=== PATIENT | female | born 1965 | race Caucasian/White ===

== ENCOUNTER → 2016-08-12 | Outpatient (CLI) | payer BC ==
[~2016-08-12] MED LIST: B-COTAB18 PO; CLR10 PO; ESTR0.3T PO; FLUT0.0529 NAE; FLVHFA110 INH; META-38 PO; MISCCAP80 PO; SUMA25TA12 PO; TOPI100T20 PO
--- NOTE | 2016-08-13 12:40 | MAMMOGRAPHY REPORT ---
BILATERAL DIGITAL SCREENING MAMMOGRAM TOMOSYNTHESIS WITH CAD: 08/12/2016 CLINICAL HISTORY: Routine screening. Patient has no complaints. TECHNIQUE: Breast tomosynthesis in addition to standard 2D mammography was performed. Current study was also evaluated with a Computer Aided Detection (CAD) system. COMPARISON: Comparison is made to exams dated: 06/30/2014 mammogram, 07/20/2013 ultrasound, 06/29/2013 mammogram, 06/23/2012 mammogram, 06/18/2011 mammogram, and 06/12/2010 mammogram - [facility] enter. BREAST COMPOSITION: The tissue of both breasts is heterogeneously dense, which may obscure small ma sses. FINDINGS: There is a stable grouping of punctate microcalcifications in the upper outer quadrant of the left breast. No suspicious mass, architectural distortion or cluster of new, suspicious microca lcifications is seen. IMPRESSION: ACR BI-RADS CATEGORY 1: NEGATIVE There is no mammographic evidence of malignancy. A 1 year screening mammogram is recommended. The p atient will receive written notification of the results. Approximately 10% of breast cancers are not detected with mammography. A negative mammographic repor t should not delay biopsy if a clinically suggestive mass is present. Niurka Kathleen M.D. ay/:08/12/2016 17:51:57 Primer Charger: Nati Edmond, [facility] letter sent: Normal 1/2 BI-RADS Code: ACR BI-RADS Category 1: Negative
== END | disposition home or self-care (01) ==
LOC: C.MAMM 07:07
PROVIDERS: ATTEND Obstetrics & Gynecology
DX: Z12.31 Encounter for screening mammogram for malignant neoplasm of breast (principal)

== ENCOUNTER → 2016-08-22 | Outpatient (CLI) | payer BC | END | disposition home or self-care (01) | LOC: C.LABSPEC 12:02 | PROVIDERS: ATTEND Obstetrics & Gynecology | DX: Z01.419 Encounter for gynecological examination (general) (routine) without abnormal findings (principal); R87.616 Satisfactory cervical smear but lacking transformation zone ==

== ENCOUNTER → 2016-12-06 | Outpatient (CLI) | payer BC ==
--- NOTE | 2016-12-06 18:12 | DIAGNOSTIC IMAGING REPORT ---
RIGHT HUMERUS MIN 2 VIEWS ROUTINE CLINICAL HISTORY: Trauma. Hematoma. COMPARISON: None FINDINGS: There is no acute fracture of the right humerus. Alignment of the right shoulder and elbow appears anatomic. Soft tissue swelling at the level the mid to distal shaft of the right upper arm is noted. IMPRESSION: 1. No acute fracture of the right humerus. 2. Right arm soft tissue swelling. Electronically signed by: Vinicio Davis M.D. 12/06/2016 6:11 PM Dictated Date/Time: 12/06/2016 6:09 PM
--- NOTE | 2016-12-06 18:13 | DIAGNOSTIC IMAGING REPORT ---
RIGHT ELBOW MIN 3 VIEWS ROUTINE CLINICAL HISTORY: Trauma. Hematoma. COMPARISON: None FINDINGS: There is no evidence for right elbow joint effusion. Alignment of the right elbow is anatomic. There is no acute fracture. There is soft tissue swelling of the lateral aspect of the arm at the level the mid to distal shaft of the right humerus. IMPRESSION: No acute fracture or joint effusion of the right elbow. Electronically signed by: Vinicio Davis M.D. 12/06/2016 6:11 PM Dictated Date/Time: 12/06/2016 6:11 PM
== END | disposition home or self-care (01) ==
LOC: C.RAD 16:54
PROVIDERS: ATTEND Physician Assistant Medical
DX: S40.021A Contusion of right upper arm, initial encounter (principal); X58.XXXA Exposure to other specified factors, initial encounter

== ENCOUNTER → 2017-01-08 | Outpatient (CLI) | payer BC ==
--- NOTE | 2017-01-08 15:52 | DIAGNOSTIC IMAGING REPORT ---
LEFT FOOT MIN 3 VIEWS ROUTINE CLINICAL HISTORY: 51 years-old Female presenting with LEFT FOOT PAIN. TECHNIQUE: Frontal, oblique, and lateral views of the left foot were obtained. COMPARISON: None. FINDINGS: Acute nondisplaced fracture of the base of the proximal phalanx of the second toe. Likely phlebolith noted in the medial anterior soft tissues of the left lower leg. Prominent bone spur at the inferior calcaneus. Atherosclerosis. Regional soft tissues of the foot within otherwise normal limits. IMPRESSION: Acute nondisplaced fracture of the base of the proximal phalanx of the second toe. Electronically signed by: Chris Lake M.D. 01/08/2017 3:51 PM Dictated Date/Time: 01/08/2017 3:49 PM
== END | disposition home or self-care (01) ==
LOC: C.RADBC 14:33
PROVIDERS: ATTEND Physician Assistant
DX: M79.672 Pain in left foot (principal)

== ENCOUNTER → 2017-08-20 | Outpatient (CLI) | payer OTHER ==
--- NOTE | 2017-08-20 14:43 | MAMMOGRAPHY REPORT ---
BILATERAL DIGITAL SCREENING MAMMOGRAM TOMOSYNTHESIS WITH CAD: 08/20/2017 CLINICAL HISTORY: Routine screening. Patient has no complaints. TECHNIQUE: Breast tomosynthesis in addition to standard 2D mammography was performed. Current study was also evaluated with a Computer Aided Detection (CAD) system. COMPARISON: Comparison is made to exams dated: 08/12/2016 mammogram, 08/08/2015 mammogram, 06/30/2014 m ammogram, 07/20/2013 ultrasound, 07/20/2013 mammogram, and 06/29/2013 mammogram - [facility] nter. BREAST COMPOSITION: The tissue of both breasts is heterogeneously dense, which may obscure small mas ses. FINDINGS: No suspicious masses, calcifications, or areas of architectural distortion are noted in ei ther breast. There has been no significant interval change compared to prior exams. IMPRESSION: ACR BI-RADS CATEGORY 1: NEGATIVE There is no mammographic evidence of malignancy. A 1 year screening mammogram is recommended. The pa tient will receive written notification of the results. Approximately 10% of breast cancers are not detected with mammography. A negative mammographic report should not delay biopsy if a clinically suggestive mass is present. Rose Garza M.D. /:08/20/2017 07:37:31 Social Services Assistant: Nati Edmond, [facility] letter sent: Normal 1/2 BI-RADS Code: ACR BI-RADS Category 1: Negative
== END | disposition home or self-care (01) ==
LOC: C.MAMM 07:05
PROVIDERS: ATTEND Obstetrics & Gynecology
DX: Z12.31 Encounter for screening mammogram for malignant neoplasm of breast (principal)

== ENCOUNTER → 2017-09-08 | Outpatient (CLI) | payer OTHER | END | disposition home or self-care (01) | LOC: C.PAPS 18:23 | PROVIDERS: ATTEND Obstetrics & Gynecology | DX: Z12.4 Encounter for screening for malignant neoplasm of cervix (principal) ==